=== PATIENT | male | born 1935 | race Caucasian/White ===

== ENCOUNTER 2018-08-16 01:43 | Emergency (ER) | payer MEDICARE, BC ==
[~2018-08-16] VITALS: Ht 167.6 cm; Wt 101.4 kg
[2018-08-16 02:22] LABS: BASOPHILS # (AUTO) 0.03 x10^3/uL (0-0.1); BASOPHILS % (AUTO) 0 % (0-1); EOSINOPHILS # (AUTO) 0.14 x10^3/uL (0-0.4); EOSINOPHILS % (AUTO) 2 % (1-7); LYMPHOCYTES # (AUTO) 1.36 x10^3/uL (1-3.4); LYMPHOCYTES % (AUTO) 19 % (22-44); MD NO; MEAN CORPUSCULAR HEMOGLOBIN 28.7 pg (27.5-34.5); MEAN CORPUSCULAR HGB CONC 33.2 g/dL (33.2-36.2); MEAN CORPUSCULAR VOLUME 86.5 fL (81-97); MEAN PLATELET VOLUME 9.9 fL (7.4-10.4); MONOCYTES % (AUTO) 6 % (2-9); NEUTROPHILS # (AUTO) 5.07 x10^3/uL (1.8-6.8); NEUTROPHILS % (AUTO) 73 % (42-75); PLATELET COUNT 204 x10^3/uL (130-400); RED BLOOD COUNT 4.58 x10^6/uL (4.38-5.82); RED CELL DISTRIBUTION WIDTH 17.2 % (9.4-14.8)
[2018-08-16] MEDS ORDERED: NITROGLYCERIN OINT 2%, 1GM TP ONE ×2 (02:30→02:38)
[2018-08-16] MEDS ORDERED: LABETALOL 5 MG/ML SYRINGE IVPush ONE (02:30)
[2018-08-16] MEDS ORDERED: PLEASE ENTER ALLERGIES MC SCH (02:30)
[2018-08-16] MEDS ORDERED: SODIUM CHLORIDE FLUSH 10ML SYR IVF ONE (02:30)
[2018-08-16 02:33] LABS: ALANINE AMINOTRANSFERASE 19 U/L (12-78); ALBUMIN 4.2 g/dL (3.4-5.0); ANION GAP 7 mmol/L (5-15); CALCIUM 8.9 mg/dL (8.5-10.1); CHLORIDE 105 mmol/L (98-107); CREATININE 1.43 mg/dL (0.7-1.3)
[2018-08-16 02:38] LABS: ALKALINE PHOSPHATASE 62 U/L (45-117); BILIRUBIN,TOTAL 0.6 mg/dL (0.2-1.0); TOTAL PROTEIN 8.4 g/dL (6.4-8.2); TROPONIN I < 0.015 ng/mL (0.000-0.045)
[2018-08-16] MEDS ORDERED: METF500T17 PO (03:07)
[2018-08-16] MEDS ORDERED: METO25TA35 PO (03:07)
[2018-08-16] MEDS ORDERED: OXYB5TAB7 PO (03:07)
[2018-08-16] MEDS ORDERED: HYDR-3343 PO (03:07)
[2018-08-16] MEDS ORDERED: AMLO-150 PO (03:07)
[2018-08-16] MEDS ORDERED: RIVA20TA PO (03:07)
[2018-08-16] MEDS ORDERED: LISI-170 PO (03:07)
--- NOTE | 2018-08-16 03:07 | NUR ---
PT MEDICATED FOR HI BP. WILL CONTINUE TO MONITOR. PT IN HOSPITAL GOWN. CALL LIGHT WITHIN REACH.
[2018-08-16 04:32] VITALS: BP 168/72
== END 2018-08-16 04:34 | disposition home or self-care (01) ==
LOC: ED 04:00
DX: I10 Essential (primary) hypertension (principal); I48.2 Chronic atrial fibrillation; R79.89 Other specified abnormal findings of blood chemistry
CPT/HCPCS: 36415; 80053; 84484; 85025; 93005; 96374